=== PATIENT | female | born 1970 | race Caucasian/White ===

== ENCOUNTER 2020-03-09 22:38 | Emergency (ER) | payer BC, OTHER ==
[~2020-03-09] VITALS: Ht 172.7 cm; Wt 97.5 kg
[2020-03-10] MEDS ORDERED: TRAMADOL 50 MG50 MG PO (00:08)
[2020-03-10] MEDS ORDERED: NAPROSYN500 MG PO (00:08)
[2020-03-10 02:09] VITALS: BP 137/91
== END 2020-03-10 02:10 | disposition home or self-care (01) ==
LOC: ER 22:38
DX: S82.832A Other fracture of upper and lower end of left fibula, initial encounter for closed fracture (principal); S83.92XA Sprain of unspecified site of left knee, initial encounter; Z90.711 Acquired absence of uterus with remaining cervical stump; Z88.2 Allergy status to sulfonamides; W10.8XXA Fall (on) (from) other stairs and steps, initial encounter; Y93.89 Activity, other specified; Y92.89 Other specified places as the place of occurrence of the external cause; Y99.8 Other external cause status